=== PATIENT | male | born 1990 | race Caucasian/White ===

== ENCOUNTER 2024-03-16 16:20 | Emergency (ER) | payer OTHER, SELFPAY ==
[2024-03-16 16:23] VITALS: BP 130/60; PULSE 66; RESP 18; TEMP 36.5; O2SAT 100; BMI 28.2
--- NOTE | 2024-03-16 17:10 | ED_ITS ---
HPI - Skin/Abscess/Foreign Bdy <Idalia Tan PA-C - Last Filed: 03/16/24 17:50> General Chief complaint: Skin/Abscess/Foreign Body Stated complaint: Hole in my belly button Time Seen by Provider: 03/16/24 17:08 Source: patient Mode of arrival: Ambulatory Limitations: no limitations History of Present Illness HPI narrative: Patient is a very pleasant 53-year-old male that presents to the emergency department with significant other for concerns of an area in his belly button that is concerning. Patient saw a small red area, and noticed some small amount of blood in his belly button. Which scared him. Currently does not have any discomfort or pain. Denies recent injury or trauma. Does not have any drainage. Does not have any redness. Has never had any issues or problems with his belly button. Does not routinely cleaned the area. The belly button has not pierced. Does not use Q-tips to clean the area. Normally washes the belly button in the shower with soap and water. Works as a construction administrator. Currently does not have any discomfort or pain. No other further complaints. Related Data Allergies Allergy/AdvReac Type Severity Reaction Status Date / Time No Known Drug Allergies Allergy Verified 03/16/24 16:27 Review of Systems <Idalia Tan PA-C - Last Filed: 03/16/24 17:50> Review of Systems Narrative: Negative except as above Integumentary/Breasts Comments: Small area, skin tag, and the belly button that is concerning to the patient. Patient History <Idalia Tan PA-C - Last Filed: 03/16/24 17:50> alcohol intake frequency: 3 or more drinks per day Alcohol type: beer Substance Use Type: marijuana Exam <Idalia Tan PA-C - Last Filed: 03/16/24 17:50> Initial Vital Signs Initial Vital Signs: Vital Signs Temperature 97.7 F 03/16/24 16:23 Pulse Rate 66 03/16/24 16:23 Respiratory Rate 18 03/16/24 16:23 Blood Pressure 130/60 03/16/24 16:23 Pulse Oximetry 100 03/16/24 16:23 Oxygen Delivery Method Room Air 03/16/24 16:23 Reviewed Const General: cooperative, healthy appearing, comfortable, well developed, well groomed, No acute distress, No in distress and anxious Eyes General: Yes appearance normal, both eyes and all related structures Eyelids: eyelids normal Pupils: PERRL EOM: EOM intact bilaterally Skin General: no rashes or lesions noted, elasticity normal and turgor normal Lesions: lesion noted (Patient has a small skin tag in the belly button) Small half a cm long irritated skin tag on the anterior aspect of the belly button. Currently red and irritated, not infected, some mild irritation, Neuro General: patient alert, patient awake, patient oriented x3, oriented and gait normal Cranial Nerves: CN's II-XI intact bilaterally Cognition: normal cognition Speech: speech normal Gait: normal gait Extrem Other: Range of motion, strength, pulses, cap refill is preserved in the upper and lower extremities Psych Appearance: grossly normal Mental Status: mental status grossly normal Speech and Movement: speech and movement normal Mood: congruent mood Affect: normal affect Attitude: cooperative Thought Process: normal Thought Content: normal Judgment: judgment good <DO Mendoza Barboza Last Filed: 03/16/24 17:55> Initial Vital Signs Initial Vital Signs: Vital Signs Temperature 97.7 F 03/16/24 16:23 Pulse Rate 66 03/16/24 16:23 Respiratory Rate 18 03/16/24 16:23 Blood Pressure 130/60 03/16/24 16:23 Pulse Oximetry 100 03/16/24 16:23 Oxygen Delivery Method Room Air 03/16/24 16:23 Course <Idalia Tan PA-C - Last Filed: 03/16/24 17:50> Vital Signs Vital signs: Vital Signs - 8 hr 03/16/24 16:23 Temperature 97.7 F Pulse Rate 66 Respiratory Rate 18 Blood Pressure 130/60 Pulse Oximetry 100 Oxygen Delivery Method Room Air Reviewed <DO Mendoza Barboza Last Filed: 03/16/24 17:55> Vital Signs Vital signs: Vital Signs - 8 hr 03/16/24 16:23 Temperature 97.7 F Pulse Rate 66 Respiratory Rate 18 Blood Pressure 130/60 Pulse Oximetry 100 Oxygen Delivery Method Room Air MDM - Skin/Abscess/Foreign Bdy <JOSAFAT Dyer Last Filed: 03/16/24 17:50> MDM Narrative Medical decision making narrative: Pleasant 33-year-old male who noticed a small area of irritation in his belly button, noticed small amount of bleeding, presents to the emergency department because he was worried . Examination shows that he has a small area of excoriation, small skin tag that has a noninfected that has some scant amount of bleeding from irritation noted on the anterior aspect of his belly button. Not infected. There is cleaned, evaluated, currently not infected, no signs of cellulitis, reassurance to the patient. Patient given education on how to keep the area clean and dry. [id number] supportive therapy. Reasons to present back to the emergency department. Given signs and symptoms of cellulitis or abscess formation. Patient feels better. He was worried that perhaps there was an opening in his guts were coming out. Reassured that this is not what is happening. Differential diagnosis; skin tag, area of irritation in his belly button. Noninfected skin irritation. Discharge Plan Departure Patient Disposition: Home Clinical Impression: Inflamed skin tag Activity Restrictions/Additional Instructions: Keep the area clean and dry, you can use peroxide to clean the area. You can apply Neosporin. Watch for any changes in the skin of the surrounding tissue. This happened in the area can become irritated. Currently at this time you do not need any antibiotics. Just allow the area to kind of dry and scabbed up. Return to the emergency department as needed. Stand Alone Forms: Patient Portal/API ED Sign-out <Tang Hinkle, DO - Last Filed: 03/16/24 17:55> [facility] Dr Hinkle Co-Sign Statement: I was available for consultation during this patient's emergency department visit. This chart is signed by myself for administrative purposes only. I did not have direct contact with this patient during this visit. They were seen independently by the [facility].
--- NOTE | 2024-03-16 17:26 | PC.NURSE ---
Pt reports feeling sweat in belly button. Pt states when he stuck his finger in his belly button he noted something to be inside. Inside belly button is a red tissue. No bleeding noted. Possible adipose tissue?
[2024-03-16 17:55] VITALS: RESP 16
== END 2024-03-16 17:55 | disposition home or self-care (01) ==
PROVIDERS: Emergency Provider Physician Assistant
DX: L91.8 Other hypertrophic disorders of the skin (principal)
CPT/HCPCS: 99281